=== PATIENT | female | born 1955 | race Caucasian/White ===

== ENCOUNTER → 2023-05-06 | Outpatient (CLI) | payer OTHER | END | disposition home or self-care (01) | LOC: SHCH 13:02 | PROVIDERS: ATTEND Internal Medicine | DX: R01.1 Cardiac murmur, unspecified (principal); I10 Essential (primary) hypertension | CPT/HCPCS: 93306 ==

== ENCOUNTER → 2024-07-18 | Outpatient (CLI) | payer OTHER | END | disposition home or self-care (01) | LOC: RAH 13:57 | PROVIDERS: ATTEND Internal Medicine | DX: Z13.6 Encounter for screening for cardiovascular disorders (principal); I10 Essential (primary) hypertension | CPT/HCPCS: 75571 ==